=== PATIENT | male | born 1970 ===

== ENCOUNTER 2018-04-08 19:55 | Inpatient (IN) | payer MEDICARE ==
[2018-04-08] MEDS ORDERED: Naloxone 2.4 MG in Sodium Chloride 0.9% 244 ML IV ONE (20:16)
--- NOTE | 2018-04-08 20:30 | ED PDOC ---
Arrival/HPI <Linnette Werner - Last Filed: 04/09/18 04:51> <Colt Starkey - Last Filed: 04/09/18 23:09> - General Chief Complaint: Substance Abuse Time Seen by Provider: 04/08/18 19:59 - History of Present Illness Narrative History of Present Illness (Text): 48 year old with unknown past medical history presents to the emergency department via EMS. EMS reports that patient was found at his home with loss of consciousness. Patient's house was very dirty and overrun with ferrets and other animals. An empty bottle of oxycodone was found at his residence with the name ripped off the front. Patient was given 4 1mg doses of Narcan. First 2 doses were IM and 2nd 2 doses were IV. Vitals was difficult to obtain due to once patient was awake, he was uncooperative, but EMS reports O2 saturation was initially 88% but improved to 95% subsequently. Patient was also given 2 mg of ativan due to uncooperative nature, which did not help at all. EMS also reports that patient reported suicidal ideations. I went to examine and see the patient. Patient was uncooperative and would not speak. Patient appeared to want to sleep on presentation. 04/08/18 20:30 (Linnette Werner) Past Medical History - Provider Review Nursing Documentation Reviewed: Yes - Infectious Disease Hx of Infectious Diseases: None - Psychiatric Hx Substance Use: No - Anesthesia Hx Anesthesia: No <Linnette Werner - Last Filed: 04/09/18 04:51> Family/Social History - Physician Review Nursing Documentation Reviewed: Yes Family/Social History: Unknown Family HX Smoking Status: Never Smoked Hx Alcohol Use: No Hx Substance Use: No <iLnnette Werner - Last Filed: 04/09/18 04:51> Allergies/Home Meds <Linnette Werner - Last Filed: 04/09/18 04:51> <Colt Starkey - Last Filed: 04/09/18 23:09> Allergies/Adverse Reactions: Allergies hazelnut Allergy (Verified 04/09/18 03:52) RASH Home Medications: Home Meds Medication Instructions Recorded Confirmed Citalopram Hydrobromide [Celexa] 20 mg PO DAILY 04/09/18 04/09/18 Clonazepam [Klonopin] 2 mg PO BID 04/09/18 04/09/18 Fenofibrate Nanocrystallized 160 mg PO DAILY 04/09/18 04/09/18 [Triglide] Gabapentin [Neurontin] 300 mg PO TID 04/09/18 04/09/18 Lorazepam [Ativan] 04/09/18 Losartan Potassium 50 mg PO DAILY 04/09/18 04/09/18 Review of Systems - Review of Systems Systems not reviewed;Unavailable: Intoxicated <Linnette Werner - Last Filed: 04/09/18 04:51> Physical Exam - Physical Exam Physical Exam Limitations: Intoxication, Uncooperative Temperature: Afebrile Blood Pressure: Normal Pulse: Regular Respiratory Rate: Normal Appearance: Positive for: Comfortable Pain Distress: Other (unable to assess) Mental Status: Positive for: other (unable to access) - Systems Exam Head: Present: Atraumatic, Normocephalic Pupils: Present: Other (dilated pupils on exam. was not able to evaluate if reactive. ) Conjunctiva: Present: Normal Nose (External): Present: Atraumatic Respiratory/Chest: Present: Wheezes (minimal) Cardiovascular: Present: Regular Rate and Rhythm Abdomen: Present: Normal Bowel Sounds. No: Tenderness Back: Present: Normal Inspection. No: Paraspinal Tenderness Upper Extremity: Present: Normal Inspection. No: Edema, NORMAL PULSES (+1/4 bilaterally) Lower Extremity: Present: Normal Inspection. No: Edema, NORMAL PULSES (PT/DP unable to palpate. Popliteal pulses are +1/4) Skin: Present: Warm, Dry, Normal Color <Linnette Werner - Last Filed: 04/09/18 04:51> <Colt Starkey - Last Filed: 04/09/18 23:09> Vital Signs Pulse Resp BP Pulse Ox 04/09/18 03:41 89 20 112/77 96 04/09/18 01:56 83 18 116/71 95 04/08/18 23:56 86 18 118/68 94 L 04/08/18 21:56 82 18 115/65 95 04/08/18 19:58 86 17 102/57 L 97 Medical Decision Making <Linnette Werner - Last Filed: 04/09/18 04:51> <Colt Starkey - Last Filed: 04/09/18 23:09> ED Course and Treatment: Impression: 48 year old male presents with prior loss of consciousness and suspected oxycodone overdose. Assessment: suspected oxycodone overdose Rule out epidural, subdural hematoma Plan: Patient seen and evaluated with Dr. Starkey. Urine drug screen, acetaminophen, salicylate, and blood alcohol level were all obtained to evaluate his suspected drug overdose. Head CT was ordered to due to loss of consciousness on presentation to EMS. EKG was done due to loss of consciousness on presentation to EMS. 04/08/18 20:42 EKG shows normal sinus rhythm with ventricular rate of 87 bpm. 04/08/18 22:36 WBC is 19.7. Will evaluate with chest x ray, urine analysis, urine culture for potential infectious source. Patient's baseline mental status has not been documented. Creatinine is 3.1. Magnesium is 2.5. 04/08/18 23:20 Sister and mother have arrived at emergency department. After extensive discussion with them, sister reported that patient is awake, alert, and oriented at baseline, and even dropped her off this morning. They report patient has not taken oxycodone "for months" and is instead taking gabapentin. Patient was found today, with a bluish tinge in his face and struggling to breath. Past medical history is significant for GERD, diverticulosis, and 4 herniated discs. They cannot tell me accurately what medications he is taking presently. Patient still has altered mental status. 04/09/18 03:22 Urine drug screen shows positive opiates and cocaine. 04/09/18 04:44 Patient will be admitted to the medicine service. (Linnette Werner) 04/08/18 21:47 Sandeep Torres is a 48 year old male who is brought into the emergency department via EMS after being found unconscious at home s/p suspected overdose. In agreement with resident note, which includes further HPI details. Patient was seen and evaluated with resident, came up with plan and treatment together. (Colt Starkey) - Lab Interpretations Lab Results: 04/08/18 21:07 04/08/18 21:07 Lab Results 04/09/18 02:33: Ur Random Creatinine 281, Ur Random Sodium 53 04/09/18 02:33: Urine Color Yellow, Urine Appearance Sl cloudy, Urine pH 6.0, Ur Specific [place] >= 1.030, Urine Protein 30 H, Urine Glucose (UA) Negative, Urine Ketones Negative, Urine Blood Negative, Urine Nitrate Negative, Urine Bilirubin Negative, Urine Urobilinogen 0.2, Ur Leukocyte Esterase Negative, Urine RBC Negative, Urine WBC Negative, Ur Epithelial Cells 4 - 5, Other Crystals Sulfa, Urine Bacteria Many, Hyaline Casts 2 - 5, Urine Other Mucus 04/09/18 02:33: Urine Opiates Screen Positive H, Urine Methadone Screen Negative , Ur Barbiturates Screen Negative, Ur Phencyclidine Scrn Negative, Ur Amphetamines Screen Negative, U Benzodiazepines Scrn Negative, U Oth Cocaine Metabols Positive H, U Cannabinoids Screen Negative 04/08/18 23:22: pCO2 44, pO2 65.0 L, HCO3 21.6, ABG pH 7.30 L, ABG Total CO2 23.0, ABG O2 Saturation 95.5, ABG O2 Content 16.4, ABG Base Excess -4.7 L, ABG Hemoglobin 12.5, ABG Carboxyhemoglobin 1.7 H, POC ABG HHb (Measured) 4.4, ABG Methemoglobin 0.5, ABG O2 Capacity 17.2, Hgb O2 Saturation 93.4 L, FiO2 21.0 04/08/18 21:07: Procalcitonin 0.59 H 04/08/18 21:07: Alcohol, Quantitative < 10 04/08/18 21:07: Salicylates < 1 L, Acetaminophen < 10.0 L 04/08/18 21:07: Sodium 148, Potassium 4.2, Chloride 107, Carbon Dioxide 26, Anion Gap 20, BUN 26 H, Creatinine 3.1 H, Est GFR ( Amer) 26, Est GFR ( Non-Af Amer) 22, Random Glucose 106, Calcium 9.4, Magnesium 2.5 H, Total Bilirubin 0.4, AST 57, ALT 44, Alkaline Phosphatase 66, Total Creatine Kinase 136, Total Protein 7.8, Albumin 4.4, Globulin 3.4, Albumin/Globulin Ratio 1.3 04/08/18 21:07: WBC 19.7 H, RBC 4.44, Hgb 13.3 L, Hct 40.9 L, MCV 92.1, MCH 30.0 , MCHC 32.5, RDW 13.3, Plt Count 237, MPV 10.7, Gran % 88.1 H, Lymph % (Auto) 3.8 L, [place] % (Auto) 8.0 H, Eos % (Auto) 0.0 L, Baso % (Auto) 0.1, Gran # 17.32 H, Lymph # (Auto) 0.7 L, [place] # (Auto) 1.6 H, Eos # (Auto) 0.0, Baso # (Auto) 0.01, Neutrophils % (Manual) 84 H, Band Neutrophils % 1, Lymphocytes % (Manual) 7 L, Monocytes % (Manual) 8 H, Platelet Evaluation Normal - RAD Interpretation Radiology Orders: 04/08/18 20:16 HEAD W/O CONTRAST [CT] Stat CHEST PORTABLE [RAD] Stat 04/09/18 02:23 RENAL [US] Routine - Medication Orders Current Medication Orders: Heparin Sodium (Porcine) (Heparin) 5,000 units SC Q12 [facility] PRN Reason: Protocol Last Admin: 04/09/18 22:01 Dose: 5,000 units Subcutaneous Administrations Document 04/09/18 22:01 (Rec: 04/09/18 22:02 [id number]) Charges for Administration # of Subcutaneous Administrations 1 Sodium Chloride (Sodium Chloride 0.9%) 1,000 mls @ 150 mls/hr IV .Q6H40M [facility] Last Admin: 04/09/18 17:34 Dose: 150 mls/hr eMAR Start Stop Document 04/09/18 17:34 ARIANA (Rec: 04/09/18 17:34 ARIANA [facility]) Intravenous Solution Start Date 04/09/18 Start Time 17:34 Pantoprazole Sodium (Protonix Ec Tab) 40 mg PO 0600 [facility] Last Admin: 04/09/18 05:44 Dose: 40 mg Discontinued Medications Naloxone HCl 2.4 mg/ Sodium (Chloride) 250 mls @ 62.5 mls/hr IV .Q4H ONE PRN Reason: 0.6 MG/HR Stop: 04/09/18 00:15 Last Admin: 04/08/18 21:13 Dose: 62.5 mls/hr eMAR Start Stop Document 04/08/18 21:13 JOL (Rec: 04/08/18 21:13 JOL [id number]) Intravenous Solution Start Date 04/08/18 Start Time 21:13 Pantoprazole Sodium (Protonix Ec Tab) 40 mg PO ONCE ONE Stop: 04/10/18 16:37 Pantoprazole Sodium (Protonix Ec Tab) 40 mg PO ONCE ONE Stop: 04/09/18 16:43 Last Admin: 04/09/18 17:34 Dose: 40 mg - PA / LEGAL DEPARTMENT MANAGER / Resident Statement / has reviewed & agrees with the documentation as recorded. /DO has examined the patient and agrees with the treatment plan. <Linnette Werner - Last Filed: 04/09/18 04:51> - Scribe Statement The provider has reviewed the documentation as recorded by the Scribe <Colt Starkey - Last Filed: 04/09/18 23:09> - Scribe Statement Martita Montgomery Provider Scribe Attestation: All medical record entries made by the Scribe were at my direction and personally dictated by me. I have reviewed the chart and agree that the record accurately reflects my personal performance of the history, physical exam, medical decision making, and the department course for this patient. I have also personally directed, reviewed, and agree with the discharge instructions and disposition. (Colt Starkey) Disposition/Present on Arrival - Present on Arrival Any Indicators Present on Arrival: No History of DVT/PE: No History of Uncontrolled Diabetes: No Urinary Catheter: No History of Decub. Ulcer: No History Surgical Site Infection Following: None - Disposition Have Diagnosis and Disposition been Completed?: Yes Disposition Time: 04:51 Patient Plan: Admission <Linnette Werner - Last Filed: 04/09/18 04:51> <Colt Starkey - Last Filed: 04/09/18 23:09> - Disposition Diagnosis: Drug abuse Disposition: HOSPITALIZED Patient Problems: Current Active Problems Problem Status Onset Drug abuse Acute Condition: STABLE
[2018-04-08 21:10] LABS: BASO # 0.01 K/mm3 (0.0-2.0); BASO % 0.1 % (0.0-3.0); GRAN # 17.32 (1.4-6.5); GRAN % 88.1 % (50.0-68.0); HEMOGLOBIN 13.3 g/dL (14.0-18.0); LYMPH # 0.7 (1.2-3.4); LYMPH % 3.8 % (22.0-35.0); MEAN CELL VOLUME 92.1 fl (80.0-105.0); MEAN CORPUSCULAR HGB CONC 32.5 g/dl (31.0-37.0); MEAN PLATELET VOLUME 10.7 fl (7.0-11.0); MONO # 1.6 (0.1-0.6); PLATELET COUNT 237 10^3/uL (120.0-450.0); RBC 4.44 10^6/uL (3.5-6.1); RED CELL DISTRIBUTION WIDTH 13.3 % (11.5-14.5); WHITE BLOOD COUNT 19.7 10^3/ul (4.5-11.0)
[2018-04-08 21:22] LABS: ACETAMINOPHEN < 10.0 ug/ml (10.0-20.0); SALICYLATE < 1 mg/dL (2.0-20.0)
[2018-04-08 21:23] LABS: ALB/GLOB RATIO 1.3 (1.1-1.8); ALBUMIN 4.4 g/dL (3.0-4.8); CALCIUM 9.4 mg/dL (8.4-10.5)
[2018-04-08 21:56] LABS: BAND 1 % (0-2); LYMPHOCYTE 7 % (22.0-35.0); MONOCYTE 8 % (1.0-6.0); NEUTROPHIL 84 % (50.0-70.0); PLATELET ESTIMATE NORMAL (NORMAL)
[2018-04-08 23:25] LABS: ARTERIAL BLOOD GAS HCO3 21.6 mmol/L (21-28); ARTERIAL BLOOD GAS HEMOGLOBIN 12.5 g/dL (11.7-17.4); ARTERIAL BLOOD GAS O2 CAPACITY 17.2 mL/dl (16-24); ARTERIAL BLOOD GAS O2 CONTENT 16.4 ML/dl (15-23); ARTERIAL BLOOD GAS O2 SAT 95.5 % (95-98); ARTERIAL BLOOD GAS PCO2 44 mm/Hg (35-45)
[2018-04-09] MEDS ORDERED: Naloxone 2.4 MG in Sodium Chloride 0.9% 244 ML IV ONE (02:06)
[2018-04-09] MEDS ORDERED: Sodium Chloride 0.9% 1,000 ML IV SCH (02:15)
[2018-04-09 02:45] LABS: URINE BILIRUBIN NEGATIVE (NEGATIVE); URINE BLOOD NEGATIVE (NEGATIVE); URINE GLUCOSE (UA) NEGATIVE (NEGATIVE); URINE LEUKOCYTE ESTERASE NEGATIVE Leu/uL (NEGATIVE); URINE PROTEIN 30 mg/dL (<30 mg/dL); URINE UROBILINOGEN 0.2 E.U./dL (<1 E.U./dL)
[2018-04-09 02:47] LABS: URINE APPEARANCE SL CLOUDY (CLEAR); URINE COLOR YELLOW (YELLOW)
[2018-04-09] MEDS: Sodium Chloride 0.9% 1,000 ML IV SCH ×3 (02:54→20:14)
[2018-04-09 03:08] LABS: BARBITURATES, UR NEGATIVE (NEGATIVE); BENZODIAZEPINES, UR NEGATIVE (NEGATIVE)
[2018-04-09 03:20] LABS: CREATININE,RANDOM URINE 281 mg/dL; OPIATES, UR POSITIVE (NEGATIVE); PHENCYCLIDINE, UR NEGATIVE (NEGATIVE); URINE BACTERIA MANY (NEG); URINE RBC NEGATIVE /hpf (0-2); URINE WBC NEGATIVE /hpf (0-6)
[2018-04-09 03:32] LABS: URINE OTHER CRYSTALS SULFA /hpf
--- NOTE | 2018-04-09 04:27 | CP.PCM.HP ---
<Vaughn Chavez - Last Filed: 04/09/18 03:47> History of Present Illness - History of Present Illness History of Present Illness: 48M PMH of Asthma, HTN, HLD, possible anxiety, depression, and Herniated disks; presenting to [facility] ED on 04/09 by EMS for respiratory depression, and drug overdose. Family at bedside reported that patient was found at home w/ difficulty breathing w/ cyanosis around lips, and cold limbs. EMS was cold and reported finding patient at home with LOC, and an empty bottle of oxycodone in residence. Patient was given 4x1mg narcan in field, with return to consciousness. He was initially uncooperative EMS gave 2mg ativan, and EMS reported suicidal ideation by patient. Pt. was satting 88 in transport and improved to 95% on arrival to ED. Pt reports he took too much gabapentin ([id number]) at home because of back pain, and denies any associated suicidal ideation at the time. Unable to fully assess ROS due to patient being lethargic. PMD: [place] PMH: Asthma HTN HLD Depression disk herniation PSH: na Allergies: NKDA Social: EtOH, no smoke, denies illicit Home Rx: Gabapentin 300, Clonazepam BID, Citalopram 40 Present on Admission - Present on Admission Any Indicators Present on Admission: No Past Patient History - Infectious Disease Hx of Infectious Diseases: None - Past Social History Smoking Status: Never Smoked - PSYCHIATRIC Hx Substance Use: No - SURGICAL HISTORY Hx Surgeries: No - ANESTHESIA Hx Anesthesia: No Meds Allergies/Adverse Reactions: Allergies Allergy/AdvReac Type Severity Reaction Status Date / Time hazelnut Allergy RASH Verified 04/09/18 03:52 Physical Exam - Constitutional Appears: Well, No Acute Distress Additional comments: Lethargic - Head Exam Head Exam: ATRAUMATIC, NORMOCEPHALIC - Eye Exam Eye Exam: EOMI, PERRL. absent: Scleral icterus - ENT Exam ENT Exam: Mucous Membranes Moist - Respiratory Exam Additional comments: Heavy breathing/ snoring; Non tachypnic; no respiratory distress - Cardiovascular Exam Cardiovascular Exam: RRR, +S1, +S2 - GI/Abdominal Exam GI & Abdominal Exam: Normal Bowel Sounds, Soft. absent: Tenderness - Extremities Exam Extremities exam: Positive for: pedal pulses present. Negative for: tenderness Additional comments: Extremities warm - Neurological Exam Additional comments: Pt answers questions appropriately however appears to be lethargic; AAO3 - Psychiatric Exam Additional comments: Does not display suicidal ideation at this time - Skin Skin Exam: Diaphoretic, Intact, Warm Results - Vital Signs Recent Vital Signs: Last Vital Signs Temp Pulse 89 04/09/18 03:41 Resp 20 04/09/18 03:41 BP 112/77 04/09/18 03:41 Pulse Ox 96 04/09/18 03:41 - Labs Result Diagrams: 04/08/18 21:07 04/08/18 21:07 Assessment & Plan - Assessment and Plan (Free Text) Assessment: 48M PMH of Asthma, HTN, HLD, possible anxiety, depression, and Herniated disks; presenting to [facility] ED on 04/09 by EMS for respiratory depression, and drug overdose. Respiratory Depression Opiate abuse vs Gabapentin overdose vs Pt. less lethargic post narcan in field; ML opiate abuse On Heavy breathing; O2 sat >95%; RR wnl ABG: PO2 - 44; pH 7.3 UDS - Cocaine + Opiate positive Cont End tidal CO2 monitoring Narcan drip DC'd in ED. Continue to monitor off drip in ICU for s/s respiratory insufficiency Elevated Cr [place] vs CKD; No Cr baseline available 150ml/hr NS UA - Many bacteria; 4-5 epithelial cells FENa - 0.4%; Kidney US ordered AM BMP/ Urine Na post fluids Suicidal Ideation/ Opiate abuse EMS reported ideation during transport; pt does not report any at bedside Pysch Consulted Leukocytosis Most likely reactive Atelectasis on CXR ProCal pending Repeat CBC in AM Hx HTN Normotensive at this time; continue to monitor; medically manage as needed Hx HLD AM Lipid pending Start Atorvastatin 40 Qd PPX - Heparin/ Protonix Dispo: Monitor patient off of narcan drip in ICU for worsening respiratory insufficiency Case seen and discussed at length w/ attending physician Dr. Trenton Chavez DO PGY1 IM Judo Instructor - Date & Time Date: 04/09/18 Time: 04:27 <Tong Chowdhury P - Last Filed: 04/09/18 08:14> Results - Vital Signs Recent Vital Signs: Last Vital Signs Temp 99.0 F 04/09/18 04:44 Pulse 89 04/09/18 06:00 Resp 20 04/09/18 04:44 BP 112/77 04/09/18 04:44 Pulse Ox 93 L 04/09/18 04:44 - Labs Result Diagrams: 04/09/18 05:50 04/09/18 05:50 Labs: Laboratory Results - last 24 hr 04/09/18 04/09/18 04/09/18 05:50 05:50 07:21 WBC 10.5 D RBC 4.02 Hgb 11.7 L Hct 36.3 L MCV 90.3 MCH 29.1 MCHC 32.2 RDW 13.0 Plt Count 236 MPV 11.0 Gran % 79.1 H Lymph % (Auto) 14.5 L [place] % (Auto) 6.3 H Eos % (Auto) 0.0 L Baso % (Auto) 0.1 Gran # 8.30 H Lymph # (Auto) 1.5 [place] # (Auto) 0.7 H Eos # (Auto) 0.0 Baso # (Auto) 0.01 pCO2 43 pO2 68.0 L HCO3 23.2 ABG pH 7.34 L ABG Total CO2 24.5 ABG O2 Saturation 97.1 ABG O2 Content 15.3 ABG Base Excess -2.6 L ABG Hemoglobin 11.5 L ABG Carboxyhemoglobin 1.9 H POC ABG HHb (Measured) 2.8 ABG Methemoglobin 1.2 ABG O2 Capacity 15.8 L Hgb O2 Saturation 94.2 L FiO2 21.0 Sodium 139 Potassium 4.0 Chloride 104 Carbon Dioxide 24 Anion Gap 15 BUN 28 H Creatinine 2.1 H Est GFR ( Amer) 41 Est GFR (Non-Af Amer) 34 Random Glucose 100 Calcium 8.6 Phosphorus 4.9 H Magnesium 1.9 Total Bilirubin 0.3 AST 60 H ALT 50 Alkaline Phosphatase 66 Total Protein 6.7 Albumin 3.8 Globulin 2.9 Albumin/Globulin Ratio 1.3 Triglycerides 101 Cholesterol 121 L LDL Cholesterol Direct 56 HDL Cholesterol 37 Attending/Attestation - Attestation I have personally seen and examined this patient.: Yes I have fully participated in the care of the patient.: Yes I have reviewed all pertinent clinical information: Yes Notes (Text): * Polypharmacy, opiod overdose confirmed by utox, response by ems with norcan * Renal insufficiency with no history of same, improvement in creat with ivf, fena 0.3 suggesting pre renal as well * Possible sleep apnea with body habitus * H/o depression denied suicidal ideation * Chronic pain * H/o htn on losartan h/o using NSAIDS Plan * DC the norcan drip observe in icu with pulse ox monitoring and endtidal co2, abg/vbg as needed. * Patient counselled about drug overdose/abuse, polypharmacy * IVF, monitor renal function * Psych consult * GI/DVT prophylaxis * See orders for detail.
[2018-04-09] MEDS: Pantoprazole 40 mg EC Tab PO SCH (05:44)
[2018-04-09 06:52] LABS: BASO # 0.01 K/mm3 (0.0-2.0); BASO % 0.1 % (0.0-3.0); GRAN # 8.3 (1.4-6.5); GRAN % 79.1 % (50.0-68.0); HEMOGLOBIN 11.7 g/dL (14.0-18.0); LYMPH # 1.5 (1.2-3.4); LYMPH % 14.5 % (22.0-35.0); MEAN CELL VOLUME 90.3 fl (80.0-105.0); MEAN CORPUSCULAR HEMOGLOBIN 29.1 pg (25.0-35.0); MEAN CORPUSCULAR HGB CONC 32.2 g/dl (31.0-37.0); MONO # 0.7 (0.1-0.6); MONO % 6.3 % (1.0-6.0); RBC 4.02 10^6/uL (3.5-6.1)
[2018-04-09 07:06] LABS: ALB/GLOB RATIO 1.3 (1.1-1.8); ALBUMIN 3.8 g/dL (3.0-4.8); CALCIUM 8.6 mg/dL (8.4-10.5)
[2018-04-09 07:21] LABS: WHITE BLOOD COUNT 10.5 10^3/ul (4.5-11.0)
[2018-04-09 07:45] LABS: ARTERIAL BLOOD GAS HCO3 23.2 mmol/L (21-28); ARTERIAL BLOOD GAS HEMOGLOBIN 11.5 g/dL (11.7-17.4); ARTERIAL BLOOD GAS O2 CAPACITY 15.8 mL/dl (16-24); ARTERIAL BLOOD GAS O2 CONTENT 15.3 ML/dl (15-23); ARTERIAL BLOOD GAS O2 SAT 97.1 % (95-98); ARTERIAL BLOOD GAS PCO2 43 mm/Hg (35-45); ARTERIAL BLOOD GAS PH 7.34 (7.35-7.45); ARTERIAL BLOOD GAS TCO2 24.5 mmol.L (22-28)
--- NOTE | 2018-04-09 08:48 | CT ---
Date of service: 04/08/2018 PROCEDURE: CT HEAD WITHOUT CONTRAST. HISTORY: Altered mental status COMPARISON: None available. TECHNIQUE: Axial computed tomography images were obtained through the head/brain without intravenous contrast. Radiation dose: Total exam DLP = 854.53 mGy-cm. This CT exam was performed using one or more of the following dose reduction techniques: Automated exposure control, adjustment of the mA and/or kV according to patient size, and/or use of iterative reconstruction technique. FINDINGS: HEMORRHAGE: No intracranial hemorrhage. BRAIN: Barth-white matter differentiation is preserved. There is no mass, mass effect or abnormal extra-axial fluid collection. There is no territorial infarction. The midline sagittal structures are normal. VENTRICLES: There is mild age advanced global parenchymal volume loss and proportionate enlargement of the ventricles and cortical sulci. CALVARIUM: There is no calvarial fracture or extracranial soft tissue swelling. PARANASAL SINUSES: Predominantly clear. MASTOID AIR CELLS: Predominantly clear. OTHER FINDINGS: None. IMPRESSION: No acute intracranial abnormality. A preliminary report was provided by [employer].
--- NOTE | 2018-04-09 08:59 | RAD ---
Date of service: 04/08/2018 HISTORY: Altered mental status COMPARISON: No prior. FINDINGS: LUNGS: The lungs are clear. PLEURA: No significant pleural effusion identified, no pneumothorax apparent. CARDIOVASCULAR: Normal. OSSEOUS STRUCTURES: No significant abnormalities. VISUALIZED UPPER ABDOMEN: Normal. OTHER FINDINGS: None. IMPRESSION: No active pulmonary disease.
--- NOTE | 2018-04-09 11:22 | CP.CCUPN ---
<Diaz Sparks - Last Filed: 04/09/18 14:42> CCU Subjective - Physician Review Subjective (Free Text): Diaz Sparks, PGY1 Critical Care Progress Note for Dr. Tovar Patient was examined at bedside this morning. He was awake, alert and oriented to person, time, and place. Patient said that he was on Percocet and Gabapentin for his low back pain (herniated disks), however, he said, "I took too much gabapentin and I haven't taken Percocet since 6 months ago." Patient denied chest pain, shortness of breath, abdominal pain, nausea, vomiting, diarrhea, and pain in the extremities. However, he did have some numbness in his arms. Otherwise, patient has been afebrile, vital signs stable, saturating well on room air. No acute issues. A Full 12 point ROS was conducted and unremarkable, except as stated above. CCU Objective - Vital Signs / Intake & Output Intake and Output (Last 8hrs): Intake & Output 04/08/18 04/09/18 04/09/18 22:59 06:59 14:59 Intake Total 450 Balance 450 Intake: IV 450 Bilateral Antecubital 450 - Physical Exam Head: Positive for: Atraumatic, Normocephalic Pupils: Positive for: PERRL Extroacular Muscles: Positive for: EOMI Conjunctiva: Positive for: Normal Nose (External): Positive for: Atraumatic Respiratory/Chest: Positive for: Clear to Auscultation, Good Air Exchange. Negative for: Respiratory Distress, Accessory Muscle Use, Wheezes, Decreased Breath Sounds, Rales, Rhonchi Cardiovascular: Positive for: Regular Rate and Rhythm, Normal S1, S2 Abdomen: Positive for: Normal Bowel Sounds. Negative for: Tenderness, Distention, Rebound, Guarding Back: Positive for: Normal Inspection. Negative for: Paraspinal Tenderness Upper Extremity: Positive for: Normal Inspection, NORMAL PULSES. Negative for: Cyanosis, Edema Lower Extremity: Positive for: Normal Inspection, NORMAL PULSES, Normal ROM. Negative for: Edema, CALF TENDERNESS, Cyanosis Skin: Positive for: Warm, Dry, Normal Color. Negative for: Rashes, Diaphoretic Psychiatric: Positive for: Alert, Oriented x 3 - Medications Active Medications: Active Medications Generic Name Dose Route Start Last Admin Trade Name Freq PRN Reason Stop Dose Admin Heparin Sodium (Porcine) 5,000 units 04/09/18 10:00 Heparin SC Q12 [facility] Protocol Sodium Chloride 1,000 mls @ 150 mls/hr 04/09/18 02:30 04/09/18 02:54 Sodium Chloride 0.9% IV 150 mls/hr .Q6H40M ANGY Administration Pantoprazole Sodium 40 mg 04/09/18 06:00 04/09/18 05:44 Protonix Ec Tab PO 40 mg 0600 ANGY Administration - Patient Studies Lab Studies: Lab Studies 04/09/18 04/09/18 04/09/18 Range/Units 07:21 05:50 05:50 WBC 10.5 D (4.5-11.0) 10^3/ul RBC 4.02 (3.5-6.1) 10^6/uL Hgb 11.7 L (14.0-18.0) g/dL Hct 36.3 L (42.0-52.0) % MCV 90.3 (80.0-105.0) fl MCH 29.1 (25.0-35.0) pg MCHC 32.2 (31.0-37.0) g/dl RDW 13.0 (11.5-14.5) % Plt Count 236 (120.0-450.0) 10^3/uL MPV 11.0 (7.0-11.0) fl Gran % 79.1 H (50.0-68.0) % Lymph % (Auto) 14.5 L (22.0-35.0) % Mcnairy % (Auto) 6.3 H (1.0-6.0) % Eos % (Auto) 0.0 L (1.5-5.0) % Baso % (Auto) 0.1 (0.0-3.0) % Gran # 8.30 H (1.4-6.5) Lymph # (Auto) 1.5 (1.2-3.4) Mcnairy # (Auto) 0.7 H (0.1-0.6) Eos # (Auto) 0.0 (0.0-0.7) Baso # (Auto) 0.01 (0.0-2.0) K/mm3 pCO2 43 (35-45) mm/Hg pO2 68.0 L (80-100) mm/Hg HCO3 23.2 (21-28) mmol/L ABG pH 7.34 L (7.35-7.45) ABG Total CO2 24.5 (22-28) mmol.L ABG O2 Saturation 97.1 (95-98) % ABG O2 Content 15.3 (15-23) ML/dl ABG Base Excess -2.6 L (-2.0-3.0) mmol/L ABG Hemoglobin 11.5 L (11.7-17.4) g/dL ABG Carboxyhemoglobin 1.9 H (0.5-1.5) % POC ABG HHb (Measured) 2.8 (0-5) % ABG Methemoglobin 1.2 (0.0-3.0) % ABG O2 Capacity 15.8 L (16-24) mL/dl Hgb O2 Saturation 94.2 L (95.0-98.0) % FiO2 21.0 % Sodium 139 (132-148) mmol/L Potassium 4.0 (3.6-5.0) mmol/L Chloride 104 (98-107) mmol/L Carbon Dioxide 24 (21-33) mmol/L Anion Gap 15 (10-20) BUN 28 H (7-21) mg/dL Creatinine 2.1 H (0.8-1.5) mg/dl Est GFR ( Amer) 41 Est GFR (Non-Af Amer) 34 Random Glucose 100 (70-110) mg/dL Calcium 8.6 (8.4-10.5) mg/dL Phosphorus 4.9 H (2.5-4.5) mg/dL Magnesium 1.9 (1.7-2.2) mg/dL Total Bilirubin 0.3 (0.2-1.3) mg/dL AST 60 H (17-59) U/L ALT 50 (7-56) U/L Alkaline Phosphatase 66 (38-126) U/L Total Protein 6.7 (5.8-8.3) g/dL Albumin 3.8 (3.0-4.8) g/dL Globulin 2.9 gm/dL Albumin/Globulin Ratio 1.3 (1.1-1.8) Triglycerides 101 (35-160) mg/dL Cholesterol 121 L (130-200) mg/dL LDL Cholesterol Direct 56 (0-129) mg/dL HDL Cholesterol 37 (29-60) mg/dL Laboratory Results - last 24 hr 04/09/18 04/09/18 04/09/18 05:50 05:50 07:21 WBC 10.5 D RBC 4.02 Hgb 11.7 L Hct 36.3 L MCV 90.3 MCH 29.1 MCHC 32.2 RDW 13.0 Plt Count 236 MPV 11.0 Gran % 79.1 H Lymph % (Auto) 14.5 L Mcnairy % (Auto) 6.3 H Eos % (Auto) 0.0 L Baso % (Auto) 0.1 Gran # 8.30 H Lymph # (Auto) 1.5 Mcnairy # (Auto) 0.7 H Eos # (Auto) 0.0 Baso # (Auto) 0.01 pCO2 43 pO2 68.0 L HCO3 23.2 ABG pH 7.34 L ABG Total CO2 24.5 ABG O2 Saturation 97.1 ABG O2 Content 15.3 ABG Base Excess -2.6 L ABG Hemoglobin 11.5 L ABG Carboxyhemoglobin 1.9 H POC ABG HHb (Measured) 2.8 ABG Methemoglobin 1.2 ABG O2 Capacity 15.8 L Hgb O2 Saturation 94.2 L FiO2 21.0 Sodium 139 Potassium 4.0 Chloride 104 Carbon Dioxide 24 Anion Gap 15 BUN 28 H Creatinine 2.1 H Est GFR ( Amer) 41 Est GFR (Non-Af Amer) 34 Random Glucose 100 Calcium 8.6 Phosphorus 4.9 H Magnesium 1.9 Total Bilirubin 0.3 AST 60 H ALT 50 Alkaline Phosphatase 66 Total Protein 6.7 Albumin 3.8 Globulin 2.9 Albumin/Globulin Ratio 1.3 Triglycerides 101 Cholesterol 121 L LDL Cholesterol Direct 56 HDL Cholesterol 37 EKG/Cardiology Studies: Cardiology / EKG Studies 04/09/18 02:18 EKG [ELECTROCARDIOGRAM] Stat Comment: Reason For Exam: overdose Review of Systems - Review of Systems All systems: reviewed and no additional remarkable complaints except (as per HPI.) Critical Care Progress Note - Extremities/Vascular Does the Patient have a Central Venous Catheter?: No Does the Patient need a Central Venous Catheter?: No Does the Patient have a Cherry Catheter?: No Does the Patient need a Cherry Catheter?: No - Prophylaxis GI Prophylaxis GI: PPI - Prophylaxis DVT Prophylaxis DVT: Heparin SQ - Nutrition Nutrition: Nutrition Category Date Time Status Heart Healthy Diet [DIET] Diets 04/09/18 Lunch Active Assessment/Plan - Assessment and Plan (Free Text) Assessment: Patient is a 48 y/o M with PMHx of HTN, asthma, HLD, anxiety, depression, and herniated disks who presented to the ED overnight for loss of consciousness. As per family, patient found unconscious with trouble breathing, cyanosis, and cold extremities. Empty bottle of oxycodone was found at home. Patient given x4 1 mg Narcan in the field with 2 mg ativan for agitation. Brought to ED and saturation improved. As per EMS, patient had suicidal ideation, but patient denied it at the ED. Positive drug screen for opiates and cocaine. Placed on Narcan drip at the ED, which was later discontinued. Psych consulted because of questionable suicidal ideation. Patient is transferred to ICU for monitoring of respiratory insufficiency s/p multiple drug overdose. Plan: Neuro: - Maintain normothermia - AAOx3 - Head CT (04/08): no intracranial abnormality Cardio: - Maintain MAP > 65 Pulm: - Saturating well on RA, no signs of respiratory distress s/p multiple drug overdose - Maintain SaO2 > 92% - ABG improved - CXR (04/08): no pulmonary disease GI: - GI ppx: PTX - Advance diet: currently HHD Renal: - MADISON trending down: 28/2.1 - c/w fluids NS @ 150 mls/hr - monitor BMP - Kidney Ultrasound was unremarkable Heme: - DVT ppx: Heparin SC ID: - leukocytosis on admission, trending down (10.5) - Low suspicion of infection Endo: - Maintain euglycemia Psych: - Questionable suicidal ideation - Psych consulted, f/u recs Dispo: No acute issues at this moment. Patient is hemodynamically stable and safe for transfer to telemetry. Case was discussed and reviewed with Attending Physician Dr. Mccollum <Madi Mccollum - Last Filed: 04/09/18 17:09> CCU Objective - Vital Signs / Intake & Output Vital Signs (Last 4 hours): Vital Signs Pulse 04/09/18 14:00 76 Intake and Output (Last 8hrs): Intake & Output 04/09/18 04/09/18 04/09/18 06:59 14:59 22:59 Intake Total 450 Balance 450 Intake: IV 450 Bilateral Antecubital 450 - Medications Active Medications: Active Medications Generic Name Dose Route Start Last Admin Trade Name Sarah PRN Reason Stop Dose Admin Heparin Sodium (Porcine) 5,000 units 04/09/18 10:00 04/09/18 12:55 Heparin SC 5,000 units Q12 ANGY Administration Protocol Sodium Chloride 1,000 mls @ 150 mls/hr 04/09/18 02:30 04/09/18 02:54 Sodium Chloride 0.9% IV 150 mls/hr .Q6H40M ANGY Administration Pantoprazole Sodium 40 mg 04/09/18 06:00 04/09/18 05:44 Protonix Ec Tab PO 40 mg 0600 ANGY Administration - Patient Studies Lab Studies: Lab Studies 04/09/18 04/09/18 04/09/18 Range/Units 07:21 05:50 05:50 WBC 10.5 D (4.5-11.0) 10^3/ul RBC 4.02 (3.5-6.1) 10^6/uL Hgb 11.7 L (14.0-18.0) g/dL Hct 36.3 L (42.0-52.0) % MCV 90.3 (80.0-105.0) fl MCH 29.1 (25.0-35.0) pg MCHC 32.2 (31.0-37.0) g/dl RDW 13.0 (11.5-14.5) % Plt Count 236 (120.0-450.0) 10^3/uL MPV 11.0 (7.0-11.0) fl Gran % 79.1 H (50.0-68.0) % Lymph % (Auto) 14.5 L (22.0-35.0) % Mcnairy % (Auto) 6.3 H (1.0-6.0) % Eos % (Auto) 0.0 L (1.5-5.0) % Baso % (Auto) 0.1 (0.0-3.0) % Gran # 8.30 H (1.4-6.5) Lymph # (Auto) 1.5 (1.2-3.4) Mcnairy # (Auto) 0.7 H (0.1-0.6) Eos # (Auto) 0.0 (0.0-0.7) Baso # (Auto) 0.01 (0.0-2.0) K/mm3 pCO2 43 (35-45) mm/Hg pO2 68.0 L (80-100) mm/Hg HCO3 23.2 (21-28) mmol/L ABG pH 7.34 L (7.35-7.45) ABG Total CO2 24.5 (22-28) mmol.L ABG O2 Saturation 97.1 (95-98) % ABG O2 Content 15.3 (15-23) ML/dl ABG Base Excess -2.6 L (-2.0-3.0) mmol/L ABG Hemoglobin 11.5 L (11.7-17.4) g/dL ABG Carboxyhemoglobin 1.9 H (0.5-1.5) % POC ABG HHb (Measured) 2.8 (0-5) % ABG Methemoglobin 1.2 (0.0-3.0) % ABG O2 Capacity 15.8 L (16-24) mL/dl Hgb O2 Saturation 94.2 L (95.0-98.0) % FiO2 21.0 % Sodium 139 (132-148) mmol/L Potassium 4.0 (3.6-5.0) mmol/L Chloride 104 (98-107) mmol/L Carbon Dioxide 24 (21-33) mmol/L Anion Gap 15 (10-20) BUN 28 H (7-21) mg/dL Creatinine 2.1 H (0.8-1.5) mg/dl Est GFR ( Amer) 41 Est GFR (Non-Af Amer) 34 Random Glucose 100 (70-110) mg/dL Calcium 8.6 (8.4-10.5) mg/dL Phosphorus 4.9 H (2.5-4.5) mg/dL Magnesium 1.9 (1.7-2.2) mg/dL Total Bilirubin 0.3 (0.2-1.3) mg/dL AST 60 H (17-59) U/L ALT 50 (7-56) U/L Alkaline Phosphatase 66 (38-126) U/L Total Protein 6.7 (5.8-8.3) g/dL Albumin 3.8 (3.0-4.8) g/dL Globulin 2.9 gm/dL Albumin/Globulin Ratio 1.3 (1.1-1.8) Triglycerides 101 (35-160) mg/dL Cholesterol 121 L (130-200) mg/dL LDL Cholesterol Direct 56 (0-129) mg/dL HDL Cholesterol 37 (29-60) mg/dL Laboratory Results - last 24 hr 04/09/18 04/09/18 04/09/18 05:50 05:50 07:21 WBC 10.5 D RBC 4.02 Hgb 11.7 L Hct 36.3 L MCV 90.3 MCH 29.1 MCHC 32.2 RDW 13.0 Plt Count 236 MPV 11.0 Gran % 79.1 H Lymph % (Auto) 14.5 L Mcnairy % (Auto) 6.3 H Eos % (Auto) 0.0 L Baso % (Auto) 0.1 Gran # 8.30 H Lymph # (Auto) 1.5 Mcnairy # (Auto) 0.7 H Eos # (Auto) 0.0 Baso # (Auto) 0.01 pCO2 43 pO2 68.0 L HCO3 23.2 ABG pH 7.34 L ABG Total CO2 24.5 ABG O2 Saturation 97.1 ABG O2 Content 15.3 ABG Base Excess -2.6 L ABG Hemoglobin 11.5 L ABG Carboxyhemoglobin 1.9 H POC ABG HHb (Measured) 2.8 ABG Methemoglobin 1.2 ABG O2 Capacity 15.8 L Hgb O2 Saturation 94.2 L FiO2 21.0 Sodium 139 Potassium 4.0 Chloride 104 Carbon Dioxide 24 Anion Gap 15 BUN 28 H Creatinine 2.1 H Est GFR ( Amer) 41 Est GFR (Non-Af Amer) 34 Random Glucose 100 Calcium 8.6 Phosphorus 4.9 H Magnesium 1.9 Total Bilirubin 0.3 AST 60 H ALT 50 Alkaline Phosphatase 66 Total Protein 6.7 Albumin 3.8 Globulin 2.9 Albumin/Globulin Ratio 1.3 Triglycerides 101 Cholesterol 121 L LDL Cholesterol Direct 56 HDL Cholesterol 37 EKG/Cardiology Studies: Cardiology / EKG Studies 04/09/18 02:18 EKG [ELECTROCARDIOGRAM] Stat Comment: Reason For Exam: overdose Critical Care Progress Note - Nutrition Nutrition: Nutrition Category Date Time Status Heart Healthy Diet [DIET] Diets 04/09/18 Lunch Active Attending/Attestation - Attestation I have personally seen and examined this patient.: Yes I have fully participated in the care of the patient.: Yes I have reviewed all pertinent clinical information: Yes Notes (Text): 04/09/18 17:02 48 yo with opiate overdose admitted to ICU for HCRF due to hypoventilation, but responded to narcan drip. Now off narcan drip, alert, awake and oriented, ate breakfast, protecting airway. Hemodynamically and respiratory card stable ccm time 40 min
--- NOTE | 2018-04-09 11:51 | US ---
Date of service: 04/09/2018 PROCEDURE: Ultrasound of the Kidneys HISTORY: Elevated creatine levels COMPARISON: None available. TECHNIQUE: Grayscale imaging was performed. FINDINGS: RIGHT KIDNEY: Measures: 11.6 cm. Normal in size, contour and echogenicity. No stone, solid mass lesion or hydronephrosis visualized. LEFT KIDNEY: Measures: 11.0 cm. Normal in size, contour and echogenicity. No stone, solid mass lesion or hydronephrosis visualized. OTHER FINDINGS: None. IMPRESSION: Normal examination.
--- NOTE | 2018-04-09 12:18 | CARD ---
APPROVED REPORT Date of service: 04/08/2018 EKG Measurement Heart [id number] <Conclusion> Normal sinus rhythm. Early Repolarization. Normal ECG
[2018-04-09] MEDS ORDERED: Pantoprazole 40 mg EC Tab PO ONE (16:42)
--- NOTE | 2018-04-09 16:59 | CARD ---
APPROVED REPORT Date of service: 04/09/2018 EKG Measurement Heart [id number] <Conclusion> Normal sinus rhythm Early repolarization Normal ECG
--- NOTE | 2018-04-09 23:07 | CON ---
DATE: 04/09/2018 HISTORY OF PRESENT ILLNESS: In short, the patient is a 48-year-old male with self-reported history of depression, one psychiatric [place] the age of 21 [place] The patient reported chronic back pain and that is why, he is taking pain killers. The patient was admitted into ICU status post possible unintentional overdose on pain killers. Psych consult was called for evaluation of possible depressive symptoms and rule out suicidal attempt. The patient was seen and examined today in ICU. The patient presented to be alert, oriented, pleasant, and cooperative. The patient said that he was not depressed. He denied that he wanted to kill himself. The patient denied that he is hearing voices or seeing things. The patient reported that he took medication for his back pain and he was watching TV and all of a sudden, he passed out. The patient reported that he is happy to be alive and during the interview, the patient reported that he felt hungry and he requested to eat. The patient said that he is on citalopram 40 mg daily and Klonopin 2 mg twice a day. Pharmacy will be called and confirmed that information. The patient's vital signs reviewed. Temperature 98.4, pulse is 76. Medications reviewed. The patient is on sodium chloride, Protonix, and heparin. Labs reviewed. At the time of admission, WBC was 19.7, today is trending down, 12.5; hemoglobin and hematocrit 11.7 and 36.3. Blood gas reviewed. Chemistry reviewed. Procalcitonin is 0.57, which is elevated. Toxicology reviewed. The patient is opioid positive and cocaine positive, but benzodiazepines are negative. Microbiology reviewed. REPORTS: The patient had renal ultrasonogram, normal examination. Head CT scan also was done, no intracranial abnormalities. MENTAL STATUS EXAMINATION: The patient presented to be sleepy, but easily arousable, alert and oriented. The patient is aware of the circumstances. Fair eye contact. Mood described as okay. Affect was constricted but reactive, mood congruent. Thought process seems to be goal directed and coherent. Thought content, the patient denied visual, auditory, or tactile hallucinations. Denied paranoid ideation. The patient denied thoughts of harming himself or others. Denied intent or plan. The patient adamantly denied that he wanted to end up his life prior to come to the hospital. IMPRESSION: As per history, the patient has mood spectrum disorder, rule out major depressive disorder. The patient's urine drug screen was positive for opioids as well as cocaine. PLAN: The patient gave permission to talk to his sister who lives with him. Plastic Fixture Builder was advised to give a call and obtain collateral information, also medications need to be confirmed by pharmacy. So far, the patient does not exhibit any aggressive or agitated behavior, does not present to be depressed or agitated. This short story writer advised the patient to follow up with outpatient provider. We will give information about outpatient clinics. After collateral information from the sister, disposition will be made. If the patient was not suicidal and never expressed thoughts of harming himself, will sign off. Should you have any questions, give me a call back. Thank you very much for letting me to participate in the care of your patient. Liliane Betancur MD
[2018-04-10] MEDS: Sodium Chloride 0.9% 1,000 ML IV SCH ×2 (02:29→05:57)
[2018-04-10] MEDS: Pantoprazole 40 mg EC Tab PO SCH (05:57)
--- NOTE | 2018-04-10 06:32 | CP.PCM.PN ---
Subjective - Date & Time of Evaluation Date of Evaluation: 04/10/18 Time of Evaluation: 06:29 - Subjective Subjective: Gogo Torres D.O. PGY1 -- Auto Refinisher -- Medicine Progress Note Objective - Vital Signs/Intake and Output Vital Signs (last 24 hours): Temp Pulse Resp BP Pulse Ox 98.4 F 92 H 29 H 120/70 97 04/09/18 16:00 04/09/18 17:31 04/09/18 17:30 04/09/18 17:31 04/09/18 17:31 Intake and Output: 04/09/18 04/10/18 18:59 06:59 Intake Total 2750 Output Total 650 Balance 2100 - Medications Medications: Current Medications Heparin Sodium (Porcine) (Heparin) 5,000 units SC Q12 [facility] PRN Reason: Protocol Last Admin: 04/09/18 22:01 Dose: 5,000 units Sodium Chloride (Sodium Chloride 0.9%) 1,000 mls @ 150 mls/hr IV .Q6H40M [facility] Last Admin: 04/10/18 05:57 Dose: Not Given Pantoprazole Sodium (Protonix Ec Tab) 40 mg PO 0600 [facility] Last Admin: 04/10/18 05:57 Dose: 40 mg - Labs Labs: 04/09/18 05:50 04/09/18 05:50 Assessment and Plan - Assessment and Plan (Free Text) Assessment: 48 year old male with past medical history of asthma, hypertension, hyperlipidemia, possible anxiety, depression, and Herniated disks; presenting to [facility] on 04/09 by EMS for respiratory depression, and drug overdose. Elevated Cr MADISON vs CKD; No Cr baseline available 150ml/hr NS UA - Many bacteria; 4-5 epithelial cells FENa - 0.4%; Kidney US ordered AM BMP/ Urine Na post fluids Respiratory Depression, resolved Opiate abuse vs Gabapentin overdose vs Pt. less lethargic post narcan in field; ML opiate abuse On Heavy breathing; O2 sat >95%; RR wnl ABG: PO2 - 44; pH 7.3 UDS - Cocaine + Opiate positive Cont End tidal CO2 monitoring Narcan drip DC'd in ED. Continue to monitor off drip in ICU for s/s respiratory insufficiency Suicidal Ideation/ Opiate abuse EMS reported ideation during transport; pt does not report any at bedside Pysch Consulted Leukocytosis Most likely reactive Atelectasis on CXR ProCal pending Repeat CBC in AM Hx HTN Normotensive at this time; continue to monitor; medically manage as needed Hx HLD AM Lipid pending Start Atorvastatin 40 Qd PPX - Heparin/ Protonix Dispo: Monitor patient off of narcan drip in ICU for worsening respiratory insufficiency Patient seen and case discussed in detail with Attending Physician Dr. Scott Torres D.O. PGY1
[2018-04-10 08:57] LABS: BASO # 0.01 K/mm3 (0.0-2.0); BASO % 0.2 % (0.0-3.0); EOS # 0.1 (0.0-0.7); EOS % 1.1 % (1.5-5.0); GRAN # 3.5 (1.4-6.5); GRAN % 61.4 % (50.0-68.0); HEMOGLOBIN 12.2 g/dL (14.0-18.0); LYMPH # 1.7 (1.2-3.4); LYMPH % 30.6 % (22.0-35.0); MEAN CELL VOLUME 88.3 fl (80.0-105.0); MEAN CORPUSCULAR HEMOGLOBIN 29.8 pg (25.0-35.0); MEAN CORPUSCULAR HGB CONC 33.8 g/dl (31.0-37.0); MEAN PLATELET VOLUME 10.9 fl (7.0-11.0); MONO # 0.4 (0.1-0.6); MONO % 6.7 % (1.0-6.0); RBC 4.09 10^6/uL (3.5-6.1); RED CELL DISTRIBUTION WIDTH 12.5 % (11.5-14.5); WHITE BLOOD COUNT 5.7 10^3/ul (4.5-11.0)
[2018-04-10 09:01] VITALS: BP 172/96; PULSE 68; RESP 20; TEMP 98.1; O2SAT 98
[2018-04-10 09:07] LABS: ALB/GLOB RATIO 1.2 (1.1-1.8); ALBUMIN 3.7 g/dL (3.0-4.8); ALT/SGPT 47 U/L (7-56); AST/SGOT 60 U/L (17-59); BLOOD UREA NITROGEN 20 mg/dL (7-21); CALCIUM 8.7 mg/dL (8.4-10.5); GFR AFRICAN-AMERICAN > 60; GFR NON-AFRICAN AMERICAN > 60
--- NOTE | 2018-04-10 15:52 | CP.PCM.DIS ---
<Gogo Torres - Last Filed: 04/10/18 18:39> Provider - Provider Date of Admission: 04/09/18 02:34 Attending physician: Camilla Chavez DO Primary care physician: ELIEL FAMILY PROVIDER Consults: Psychiatry: Dr. Momin Time Spent in preparation of Discharge (in minutes): 45 Diagnosis - Discharge Diagnosis (1) Drug abuse Status: Resolved Priority: Medium Hospital Course - Lab Results Lab Results: Micro Results 04/09/18 05:00 Nose MRSA Culture (Admit) - Final MRSA NOT DETECTED Most Recent Lab Values WBC 5.7 10^3/ul (4.5-11.0) D 04/10/18 08:30 RBC 4.09 10^6/uL (3.5-6.1) 04/10/18 08:30 Hgb 12.2 g/dL (14.0-18.0) L 04/10/18 08:30 Hct 36.1 % (42.0-52.0) L 04/10/18 08:30 MCV 88.3 fl (80.0-105.0) 04/10/18 08:30 MCH 29.8 pg (25.0-35.0) 04/10/18 08:30 MCHC 33.8 g/dl (31.0-37.0) 04/10/18 08:30 RDW 12.5 % (11.5-14.5) 04/10/18 08:30 Plt Count 211 10^3/uL (120.0-450.0) 04/10/18 08:30 MPV 10.9 fl (7.0-11.0) 04/10/18 08:30 Gran % 61.4 % (50.0-68.0) 04/10/18 08:30 Lymph % (Auto) 30.6 % (22.0-35.0) 04/10/18 08:30 [place] % (Auto) 6.7 % (1.0-6.0) H 04/10/18 08:30 Eos % (Auto) 1.1 % (1.5-5.0) L 04/10/18 08:30 Baso % (Auto) 0.2 % (0.0-3.0) 04/10/18 08:30 Gran # 3.50 (1.4-6.5) 04/10/18 08:30 Lymph # (Auto) 1.7 (1.2-3.4) 04/10/18 08:30 [place] # (Auto) 0.4 (0.1-0.6) 04/10/18 08:30 Eos # (Auto) 0.1 (0.0-0.7) 04/10/18 08:30 Baso # (Auto) 0.01 K/mm3 (0.0-2.0) 04/10/18 08:30 Neutrophils % (Manual) 84 % (50.0-70.0) H 04/08/18 21:07 Band Neutrophils % 1 % (0-2) 04/08/18 21:07 Lymphocytes % (Manual) 7 % (22.0-35.0) L 04/08/18 21:07 Monocytes % (Manual) 8 % (1.0-6.0) H 04/08/18 21:07 Platelet Evaluation Normal (NORMAL) 04/08/18 21:07 pCO2 43 mm/Hg (35-45) 04/09/18 07:21 pO2 68.0 mm/Hg (80-100) L 04/09/18 07:21 HCO3 23.2 mmol/L (21-28) 04/09/18 07:21 ABG pH 7.34 (7.35-7.45) L 04/09/18 07:21 ABG Total CO2 24.5 mmol.L (22-28) 04/09/18 07:21 ABG O2 Saturation 97.1 % (95-98) 04/09/18 07:21 ABG O2 Content 15.3 ML/dl (15-23) 04/09/18 07:21 ABG Base Excess -2.6 mmol/L (-2.0-3.0) L 04/09/18 07:21 ABG Hemoglobin 11.5 g/dL (11.7-17.4) L 04/09/18 07:21 ABG Carboxyhemoglobin 1.9 % (0.5-1.5) H 04/09/18 07:21 POC ABG HHb (Measured) 2.8 % (0-5) 04/09/18 07:21 ABG Methemoglobin 1.2 % (0.0-3.0) 04/09/18 07:21 ABG O2 Capacity 15.8 mL/dl (16-24) L 04/09/18 07:21 Hgb O2 Saturation 94.2 % (95.0-98.0) L 04/09/18 07:21 FiO2 21.0 % 04/09/18 07:21 Sodium 141 mmol/L (132-148) 04/10/18 08:30 Potassium 4.4 mmol/L (3.6-5.0) 04/10/18 08:30 Chloride 106 mmol/L (98-107) 04/10/18 08:30 Carbon Dioxide 27 mmol/L (21-33) 04/10/18 08:30 Anion Gap 13 (10-20) 04/10/18 08:30 BUN 20 mg/dL (7-21) 04/10/18 08:30 Creatinine 1.1 mg/dl (0.8-1.5) 04/10/18 08:30 Est GFR ( Amer) > 60 04/10/18 08:30 Est GFR (Non-Af Amer) > 60 04/10/18 08:30 Random Glucose 101 mg/dL (70-110) 04/10/18 08:30 Calcium 8.7 mg/dL (8.4-10.5) 04/10/18 08:30 Phosphorus 4.9 mg/dL (2.5-4.5) H 04/09/18 05:50 Magnesium 1.9 mg/dL (1.7-2.2) 04/09/18 05:50 Total Bilirubin 0.6 mg/dL (0.2-1.3) 04/10/18 08:30 AST 60 U/L (17-59) H 04/10/18 08:30 ALT 47 U/L (7-56) 04/10/18 08:30 Alkaline Phosphatase 65 U/L (38-126) 04/10/18 08:30 Total Creatine Kinase 136 U/L (35-230) 04/08/18 21:07 Total Protein 6.8 g/dL (5.8-8.3) 04/10/18 08:30 Albumin 3.7 g/dL (3.0-4.8) 04/10/18 08:30 Globulin 3.1 gm/dL 04/10/18 08:30 Albumin/Globulin Ratio 1.2 (1.1-1.8) 04/10/18 08:30 Triglycerides 101 mg/dL (35-160) 04/09/18 05:50 Cholesterol 121 mg/dL (130-200) L 04/09/18 05:50 LDL Cholesterol Direct 56 mg/dL (0-129) 04/09/18 05:50 HDL Cholesterol 37 mg/dL (29-60) 04/09/18 05:50 Procalcitonin 0.59 NG/ML (0.19-0.49) H 04/08/18 21:07 Urine Color Yellow (YELLOW) 04/09/18 02:33 Urine Appearance Sl cloudy (CLEAR) 04/09/18 02:33 Urine pH 6.0 (4.7-8.0) 04/09/18 02:33 Ur Specific [place] >= 1.030 (1.005-1.035) 04/09/18 02:33 Urine Protein 30 mg/dL (<30 mg/dL) H 04/09/18 02:33 Urine Glucose (UA) Negative mg/dL (NEGATIVE) 04/09/18 02:33 Urine Ketones Negative mg/dL (NEGATIVE) 04/09/18 02:33 Urine Blood Negative (NEGATIVE) 04/09/18 02:33 Urine Nitrate Negative (NEGATIVE) 04/09/18 02:33 Urine Bilirubin Negative (NEGATIVE) 04/09/18 02:33 Urine Urobilinogen 0.2 E.U./dL (<1 E.U./dL) 04/09/18 02:33 Ur Leukocyte Esterase Negative Shawna/uL (NEGATIVE) 04/09/18 02:33 Urine RBC Negative /hpf (0-2) 04/09/18 02:33 Urine WBC Negative /hpf (0-6) 04/09/18 02:33 Ur Epithelial Cells 4 - 5 /hpf (0-5) 04/09/18 02:33 Other Crystals Sulfa /hpf 04/09/18 02:33 Urine Bacteria Many (NEG) 04/09/18 02:33 Hyaline Casts 2 - 5 /hpf 04/09/18 02:33 Urine Other Mucus 04/09/18 02:33 Ur Random Creatinine 281 mg/dL 04/09/18 02:33 Ur Random Sodium 53 meq/L 04/09/18 02:33 Salicylates < 1 mg/dL (2.0-20.0) L 04/08/18 21:07 Urine Opiates Screen Positive (NEGATIVE) H 04/09/18 02:33 Urine Methadone Screen Negative (NEGATIVE) 04/09/18 02:33 Acetaminophen < 10.0 ug/ml (10.0-20.0) L 04/08/18 21:07 Ur Barbiturates Screen Negative (NEGATIVE) 04/09/18 02:33 Ur Phencyclidine Scrn Negative (NEGATIVE) 04/09/18 02:33 Ur Amphetamines Screen Negative (NEGATIVE) 04/09/18 02:33 U Benzodiazepines Scrn Negative (NEGATIVE) 04/09/18 02:33 U Oth Cocaine Metabols Positive (NEGATIVE) H 04/09/18 02:33 U Cannabinoids Screen Negative (NEGATIVE) 04/09/18 02:33 Alcohol, Quantitative < 10 mg/dL (0-10) 04/08/18 21:07 - Hospital Course Hospital Course: 48-year-old male with past medical history of asthma, hypertension, hyperlipidemia, anxiety, depression, and herniated disks who presented to [facility] Emergency Department (ED) on by EMS who found the patient at home with loss of consciousness, respiratory depression, and drug overdose. Patient was given Narcan 1mg (x4) while in the field, and regained consciousness, after which he admitted to suicidal ideation. Patient was admitted to ICU for respiratory depression secondary to opiate overdose. Patient's end tidal CO2 was monitored, ABG revealed PO2 44, pH 7.3, and the patient was suspected to have respiratory acidosis. chest X-Ray revealed atelectasis. Head CT revealed no intracranial abnormality. On the following day , the patient was saturating well on room air, and he showed no signs of respiratory distress. Patient was maintaining SaO2 > 92%, and ABG improved. Patient was subsequently downgraded to telemetry. Furthermore, the patient was suspected to have obstructive sleep apnea due to body habitus. It is recommended that the patient follow-up with his primary care physician for sleep study and CPAP machine. CMP revealed creatinine 3.1 and the patient was suspected to have pre-renal azotemia likely secondary to dehydration. Patient was treated with IVF. Renal ultrasound was unremarkable. BMP was monitored. On day 2 the patient's creatinine was 2.1, and on the day of discharge 1.1, marking the resolution of the patient's acute kidney injury. Of note, the patient's home meds were restarted for hypertension and hyperlipidemia, and the patient remained normotensive on day of discharge. Urine drug screen revealed multiple drug overdose. Patient admitted to taking several pills that evening in attempt to quell his anxiety that he was experiencing, and denied any suicidal ideation. Psychiatry was consulted and recommended discharge to home with outpatient follow-up. Cessation of all recreational drugs and/or drug abuse was strongly encouraged. On the day of discharge, the patient showed no signs of acute distress, patient medically optimized, and patient agreed to be discharged to home. Discharged Medications: Celexa 20mg PO Daily Klonopin 2mg PO BID Fenofibrate 160mg PO Daily Gabapentin 300mg PO TID Losartan Potassium 50mg PO Daily Patient seen and case discussed in detail with Attending Physician Dr. Scott Torres D.O. PGY1 - Date & Time of H&P Date of H&P: 04/09/18 Time of H&P: 03:47 Discharge Exam - Head Exam Head Exam: ATRAUMATIC, NORMOCEPHALIC - Eye Exam Eye Exam: EOMI, Normal appearance. absent: Conjunctival injection, Scleral icterus Pupil Exam: NORMAL ACCOMODATION - ENT Exam ENT Exam: Mucous Membranes Moist, Normal Exam - Respiratory Exam Respiratory Exam: NORMAL BREATHING PATTERN, UNREMARKABLE. absent: Accessory Muscle Use, Decreased Breath Sounds, Prolonged Expiratory Phase, Wheezes, Respiratory Distress - Cardiovascular Exam Cardiovascular Exam: RRR. absent: Diastolic murmur, Systolic Murmur - GI/Abdominal Exam GI & Abdominal Exam: Normal Bowel Sounds, Soft, Unremarkable - Extremities Exam Extremities exam: full ROM, normal inspection - Back Exam Back exam: NORMAL INSPECTION. absent: tenderness - Neurological Exam Neurological exam: Alert, Normal Gait, Oriented x3 - Psychiatric Exam Psychiatric exam: Normal Affect, Normal Mood - Skin Skin Exam: Dry, Intact, Normal Color, Warm Discharge Plan - Follow Up Plan Condition: STABLE Disposition: HOME/ ROUTINE Patient education suggested?: Yes Instructions: Drug Abuse and Drug Addiction (DC) Additional Instructions: - Follow up with primary doctor within 3-5 days, you will need your blood pressure and blood work checked - Take home medications as prescribed - Advise complete cessation of all illicit drug use - Proceed to ED if symptoms return Referrals: FAMILY PROVIDER,NO [Primary Care Provider] - <Camilla Chavez - Last Filed: 04/11/18 08:08> Provider - Provider Date of Admission: 04/09/18 02:34 Attending physician: Camilla Chavez DO Primary care physician: ELIEL FAMILY PROVIDER Hospital Course - Lab Results Lab Results: Micro Results 04/09/18 05:00 Nose MRSA Culture (Admit) - Final MRSA NOT DETECTED Most Recent Lab Values WBC 5.7 10^3/ul (4.5-11.0) D 04/10/18 08:30 RBC 4.09 10^6/uL (3.5-6.1) 04/10/18 08:30 Hgb 12.2 g/dL (14.0-18.0) L 04/10/18 08:30 Hct 36.1 % (42.0-52.0) L 04/10/18 08:30 MCV 88.3 fl (80.0-105.0) 04/10/18 08:30 MCH 29.8 pg (25.0-35.0) 04/10/18 08:30 MCHC 33.8 g/dl (31.0-37.0) 04/10/18 08:30 RDW 12.5 % (11.5-14.5) 04/10/18 08:30 Plt Count 211 10^3/uL (120.0-450.0) 04/10/18 08:30 MPV 10.9 fl (7.0-11.0) 04/10/18 08:30 Gran % 61.4 % (50.0-68.0) 04/10/18 08:30 Lymph % (Auto) 30.6 % (22.0-35.0) 04/10/18 08:30 [place] % (Auto) 6.7 % (1.0-6.0) H 04/10/18 08:30 Eos % (Auto) 1.1 % (1.5-5.0) L 04/10/18 08:30 Baso % (Auto) 0.2 % (0.0-3.0) 04/10/18 08:30 Gran # 3.50 (1.4-6.5) 04/10/18 08:30 Lymph # (Auto) 1.7 (1.2-3.4) 04/10/18 08:30 [place] # (Auto) 0.4 (0.1-0.6) 04/10/18 08:30 Eos # (Auto) 0.1 (0.0-0.7) 04/10/18 08:30 Baso # (Auto) 0.01 K/mm3 (0.0-2.0) 04/10/18 08:30 Neutrophils % (Manual) 84 % (50.0-70.0) H 04/08/18 21:07 Band Neutrophils % 1 % (0-2) 04/08/18 21:07 Lymphocytes % (Manual) 7 % (22.0-35.0) L 04/08/18 21:07 Monocytes % (Manual) 8 % (1.0-6.0) H 04/08/18 21:07 Platelet Evaluation Normal (NORMAL) 04/08/18 21:07 pCO2 43 mm/Hg (35-45) 04/09/18 07:21 pO2 68.0 mm/Hg (80-100) L 04/09/18 07:21 HCO3 23.2 mmol/L (21-28) 04/09/18 07:21 ABG pH 7.34 (7.35-7.45) L 04/09/18 07:21 ABG Total CO2 24.5 mmol.L (22-28) 04/09/18 07:21 ABG O2 Saturation 97.1 % (95-98) 04/09/18 07:21 ABG O2 Content 15.3 ML/dl (15-23) 04/09/18 07:21 ABG Base Excess -2.6 mmol/L (-2.0-3.0) L 04/09/18 07:21 ABG Hemoglobin 11.5 g/dL (11.7-17.4) L 04/09/18 07:21 ABG Carboxyhemoglobin 1.9 % (0.5-1.5) H 04/09/18 07:21 POC ABG HHb (Measured) 2.8 % (0-5) 04/09/18 07:21 ABG Methemoglobin 1.2 % (0.0-3.0) 04/09/18 07:21 ABG O2 Capacity 15.8 mL/dl (16-24) L 04/09/18 07:21 Hgb O2 Saturation 94.2 % (95.0-98.0) L 04/09/18 07:21 FiO2 21.0 % 04/09/18 07:21 Sodium 141 mmol/L (132-148) 04/10/18 08:30 Potassium 4.4 mmol/L (3.6-5.0) 04/10/18 08:30 Chloride 106 mmol/L (98-107) 04/10/18 08:30 Carbon Dioxide 27 mmol/L (21-33) 04/10/18 08:30 Anion Gap 13 (10-20) 04/10/18 08:30 BUN 20 mg/dL (7-21) 04/10/18 08:30 Creatinine 1.1 mg/dl (0.8-1.5) 04/10/18 08:30 Est GFR ( Amer) > 60 04/10/18 08:30 Est GFR (Non-Af Amer) > 60 04/10/18 08:30 Random Glucose 101 mg/dL (70-110) 04/10/18 08:30 Calcium 8.7 mg/dL (8.4-10.5) 04/10/18 08:30 Phosphorus 4.9 mg/dL (2.5-4.5) H 04/09/18 05:50 Magnesium 1.9 mg/dL (1.7-2.2) 04/09/18 05:50 Total Bilirubin 0.6 mg/dL (0.2-1.3) 04/10/18 08:30 AST 60 U/L (17-59) H 04/10/18 08:30 ALT 47 U/L (7-56) 04/10/18 08:30 Alkaline Phosphatase 65 U/L (38-126) 04/10/18 08:30 Total Creatine Kinase 136 U/L (35-230) 04/08/18 21:07 Total Protein 6.8 g/dL (5.8-8.3) 04/10/18 08:30 Albumin 3.7 g/dL (3.0-4.8) 04/10/18 08:30 Globulin 3.1 gm/dL 04/10/18 08:30 Albumin/Globulin Ratio 1.2 (1.1-1.8) 04/10/18 08:30 Triglycerides 101 mg/dL (35-160) 04/09/18 05:50 Cholesterol 121 mg/dL (130-200) L 04/09/18 05:50 LDL Cholesterol Direct 56 mg/dL (0-129) 04/09/18 05:50 HDL Cholesterol 37 mg/dL (29-60) 04/09/18 05:50 Procalcitonin 0.59 NG/ML (0.19-0.49) H 04/08/18 21:07 Urine Color Yellow (YELLOW) 04/09/18 02:33 Urine Appearance Sl cloudy (CLEAR) 04/09/18 02:33 Urine pH 6.0 (4.7-8.0) 04/09/18 02:33 Ur Specific [place] >= 1.030 (1.005-1.035) 04/09/18 02:33 Urine Protein 30 mg/dL (<30 mg/dL) H 04/09/18 02:33 Urine Glucose (UA) Negative mg/dL (NEGATIVE) 04/09/18 02:33 Urine Ketones Negative mg/dL (NEGATIVE) 04/09/18 02:33 Urine Blood Negative (NEGATIVE) 04/09/18 02:33 Urine Nitrate Negative (NEGATIVE) 04/09/18 02:33 Urine Bilirubin Negative (NEGATIVE) 04/09/18 02:33 Urine Urobilinogen 0.2 E.U./dL (<1 E.U./dL) 04/09/18 02:33 Ur Leukocyte Esterase Negative Shawna/uL (NEGATIVE) 04/09/18 02:33 Urine RBC Negative /hpf (0-2) 04/09/18 02:33 Urine WBC Negative /hpf (0-6) 04/09/18 02:33 Ur Epithelial Cells 4 - 5 /hpf (0-5) 04/09/18 02:33 Other Crystals Sulfa /hpf 04/09/18 02:33 Urine Bacteria Many (NEG) 04/09/18 02:33 Hyaline Casts 2 - 5 /hpf 04/09/18 02:33 Urine Other Mucus 04/09/18 02:33 Ur Random Creatinine 281 mg/dL 04/09/18 02:33 Ur Random Sodium 53 meq/L 04/09/18 02:33 Salicylates < 1 mg/dL (2.0-20.0) L 04/08/18 21:07 Urine Opiates Screen Positive (NEGATIVE) H 04/09/18 02:33 Urine Methadone Screen Negative (NEGATIVE) 04/09/18 02:33 Acetaminophen < 10.0 ug/ml (10.0-20.0) L 04/08/18 21:07 Ur Barbiturates Screen Negative (NEGATIVE) 04/09/18 02:33 Ur Phencyclidine Scrn Negative (NEGATIVE) 04/09/18 02:33 Ur Amphetamines Screen Negative (NEGATIVE) 04/09/18 02:33 U Benzodiazepines Scrn Negative (NEGATIVE) 04/09/18 02:33 U Oth Cocaine Metabols Positive (NEGATIVE) H 04/09/18 02:33 U Cannabinoids Screen Negative (NEGATIVE) 04/09/18 02:33 Alcohol, Quantitative < 10 mg/dL (0-10) 04/08/18 21:07 Attending/Attestation - Attestation I have personally seen and examined this patient.: Yes I have fully participated in the care of the patient.: Yes I have reviewed all pertinent clinical information, including history, physical exam and plan: Yes Notes (Text): Patient seen and examined by me with resident at 10:15AM 04/10/18. Case including discharge plan discussed with resident. Agree with above with following additions/corrections Patient is a 48-year-old male with past medical history significant for asthma, hypertension, hyperlipidemia, anxiety and depression, and herniated disks that presented to the emergency room for respiratory depression and drug overdose. Please see dictated H&P for further details. Patient was admitted with respiratory depression. Patient was found at home with difficulty breathing and cyanosis around his lips. Empty bottle of oxycodone at his residence. Patient was given 4 doses of Narcan in the field with return of consciousness. Patient was admitted to the ICU. Patient was initially started on a Narcan drip which was then stopped. UDS was positive for opioids and cocaine. Patient was also found to have acute kidney injury on admission. Patient was placed on IV fluids. AKA likely secondary to drug overdose and dehydration. This did resolve with IV fluids. Patient was evaluated by psychiatry for possible suicidal ideation. Patient was found not to be suicidal. Patient also had leukocytosis which was likely reactive and it resolved. Patient was continued on his home losartan for blood pressure. All symptoms improved upon discharge. Vitals remained stable. Patient was cleared for discharge by all consultants. On day of discharge, patient states he is feeling well and wants to go home. No nausea, vomiting, or abdominal pain. No headaches or dizziness. No fevers or chills. No dysuria. No neck pain or back pain. No chest pain or shortness of breath. Patient was counseled at length on cessation of all illicit drug use. Physical exam: Gen: Awake and alert sitting up in bed in no acute distress HEENT: Normocephalic atraumatic. Extraocular muscles intact, pupils equal reactive. Oropharynx is pink and moist, no pharyngeal erythema or exudate appreciated. Neck is supple. Cardiovascular: Normal rhythm, normal S1-S2. No murmurs, rubs, or gallops appreciated Pulmonary: Normal respiratory effort. No rhonchi, rales or wheezing appreciated. Gastrointestinal: Soft, obese abdomen, nontender, positive bowel sounds all 4 quadrants, no guarding. Musculoskeletal: Normal range of motion all extremities, no calf tenderness, no CVA tenderness Central nervous system: AAO 3. Cranial nerves 2 through 12 grossly intact. 5 out of 5 muscle strength all extremities. Sensation intact. Dermatologic: Skin warm and dry Please see chart for full details. Follow up instructions. Patient to follow-up with his primary care doctor within 3-5 days. Patient will need blood pressure checked and repeat blood work done. Patient to take all medications as prescribed. Advised to stop use of all illicit drug use. All instructions explained to patient in detail. Patient both understands and agrees to all instructions. Time spent in discharging the patient including chart review, medication reconciliation, discussion with the patient, medical associate, consultants, and nursing staff was approximately 40 minutes.
[2018-04-10] MEDS ORDERED: Pantoprazole 40 mg EC Tab PO ONE (16:36)
== END 2018-04-10 11:40 | disposition home or self-care (01) | DRG 918 ==
LOC: ED 19:55 → ERH 04-09 02:34 → ICU 04-09 04:10 → 3RSO 04-09 21:29
PROVIDERS: ADMIT Hospitalist; ATTEND Hospitalist
DX: T40.601A Poisoning by unspecified narcotics, accidental (unintentional), initial encounter (principal); N17.9 Acute kidney failure, unspecified; I10 Essential (primary) hypertension; E86.0 Dehydration; F32.9 Major depressive disorder, single episode, unspecified; E78.5 Hyperlipidemia, unspecified; F41.9 Anxiety disorder, unspecified; G89.29 Other chronic pain; M54.5 Low back pain; J45.909 Unspecified asthma, uncomplicated; Y92.009 Unspecified place in unspecified non-institutional (private) residence as the place of occurrence of the external cause